=== PATIENT | male | born 1940 | race Caucasian/White ===

== ENCOUNTER 2018-05-30 15:03 | Inpatient (IN) | payer MEDICARE, OTHER ==
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
--- NOTE | ~2018-05-30 | PR ---
[place], [place] PROGRESS NOTE NAME: COREY MEZA UNIT #: [id number] ROOM: 309 DOCTOR: MOHINI SCHMIDT MD BIRTHDATE: [birth year] DOS: 06/07/2018 CHIEF COMPLAINT: "Good morning." SUMMARY OF THE VISIT: The patient was interviewed as he was sitting, eating his breakfast. He was somewhat somnolent. Nurses report, he had just been given a shower and this seems to have worn him out. Overall, the nurses report that there is a steady trend in improvement and that his periods of aggression have decreased in both frequency and intensity. He does seem to be tolerating the current medication regimen well without any apparent tardive dyskinesia, extrapyramidal symptoms, or persistent daytime somnolence. MENTAL STATUS: It was somewhat limited due to his level of somnolence this morning, but he was bright and did engage in brief superficial conversation. PLAN: The patient did seem to improve the most when the Valium was added. I am going to attempt to simplify then his regimen and lessen the amount of antipsychotic he is receiving, bringing the dose from 3 mg daily down to 2 mg daily given in a 1 mg b.i.d. dosing schedule. I will simultaneously increase the Valium from 5 mg t.i.d. to 5 mg 4 times a day to see if this will impact positively on his behavior without the risk of side effects that the antipsychotics bring. We will engage in individual and feldman milieu activities, returning then to the least restrictive environment when psychiatrically stable. MOHINI SCHMIDT MD CM:PNTRANS [id number] MOHINI SCHMIDT MD 06/07/18 0808 interface
--- NOTE | ~2018-05-30 | PR ---
[place], [place] PROGRESS NOTE NAME: COREY MEZA UNIT #: [id number] ROOM: 309 DOCTOR: MOHINI SCHMIDT MD BIRTHDATE: [birth year] DOS: 06/04/2018 CHIEF COMPLAINT: "Good morning." SUMMARY OF THE VISIT: The patient was interviewed as he sat in a Julisa chair. He was resting, but awoke easily and engaged readily in conversation with me. His conversation was brief and at times nonsensical. He did not always respond appropriately to the question being asked. Nurses report he received frequent PRNs during the weekend mostly Geodon because of extreme mood volatility and agitation and physical aggression. He continues to strike out without provocation. He is very hard to redirect. MENTAL STATUS: He is alert and oriented to self. It is unclear place, certainly not time. Mood does seem to be wildly labile. Affect is inappropriate. There is no hypomania, bethanie or psychosis. Memory is very suspect. PLAN: Over the weekend, Yari Brantley, nurse practitioner, restarted Depakote Sprinkles; however, the patient had been on Depakote previously and was therapeutic with a blood level of 93 while at ____ [facility] and this did not seem to impact positively on his behavior. I will discontinue the Depakote due to previous ineffectiveness and start him on Valium oral solution 5 mg 3 times daily to see if this can impact positively on his behavior. We will attempt to engage him as best we can into individual and feldman milieu activity, returning then to the least restrictive environment when psychiatrically stable. MOHINI SCHMIDT MD CM:PNTRANS [id number] MOHINI SCHMIDT MD 06/04/18 1010 interface
--- NOTE | ~2018-05-30 | PR ---
[place], [place] PROGRESS NOTE NAME: COREY MEZA UNIT #: [id number] ROOM: 309 DOCTOR: MOHINI SCHMIDT MD BIRTHDATE: [birth year] DOS: 06/05/2018 CHIEF COMPLAINT: "Morning." SUMMARY OF THE VISIT: The patient was interviewed as he rested in a Julisa chair. He engaged in brief superficial conversation, most of it nonsensical and not necessarily to the point. Nurses reported a dramatic change in him since the medication changes and he did not require a single p.r.n. in the last 24 hours. He allowed them to straight cath him without becoming combative and has been much more pleasant and cooperative. MENTAL STATUS: He remains alert and oriented to self only. Mood does seem to be more euthymic. Affect more appropriate. There is no bethanie, hypomania or gross psychotic symptoms. Short term memory continues to be problematic. PLAN: I will maintain his current psychotropic regimen. It seems like the Valium along with the Risperdal has taken effect and he is much more pleasant. We will monitor over the next 48-72 hours and then determine the least restrictive environment to which he could be discharged. MOHINI SCHMIDT MD CM:PNTRANS [id number] MOHINI SCHMIDT MD 06/05/18 1114 interface
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
[2018-05-30] MEDS ORDERED: BIOFREEZE118 ML T (17:53)
[2018-05-30] MEDS ORDERED: ARICEPT5 M1 PO (18:34)
[2018-05-30] MEDS ORDERED: ASPIRIN81 M1 PO (18:34)
[2018-05-30] MEDS ORDERED: ATORVASTATIN CA10 M1 PO (18:35)
[2018-05-30] MEDS ORDERED: DEPAKOTE500 MG PO (18:36)
[2018-05-30] MEDS ORDERED: DEPAKOTE250 MG PO (18:36)
[2018-05-30] MEDS ORDERED: LEVOTHYROXINE50 MCG PO (18:36)
[2018-05-30] MEDS ORDERED: MULTIVITAMINS1 EAC1 PO (18:37)
[2018-05-30] MEDS ORDERED: MOBIC7.5 MG PO (18:37)
[2018-05-30] MEDS ORDERED: TRAZODONE50 MG PO (18:37)
[2018-05-30] MEDS ORDERED: ZANTAC 150150 MG PO (18:38)
[2018-05-30] MEDS ORDERED: VALSARTAN160 MG PO (18:38)
[2018-05-30] MEDS ORDERED: RISPERDAL0.5 MG PO (18:38)
[2018-05-30] MEDS ORDERED: NAMENDA10 MG PO (18:38)
[2018-05-30] MEDS ORDERED: HALDOL5 MG/1 ML IM (18:39)
[2018-05-30 19:51] VITALS: BP 141/86
[2018-05-30 19:52] VITALS: BP 141/86
[2018-05-31 08:08] VITALS: BP 138/75
[2018-05-31 13:15] LABS: BASO % 0.6 % (0.0-1.0); EOS # 0.1 10*3/uL (0.0-0.4); EOS % 2.4 % (1.0-4.0); HEMATOCRIT 44.3 % (42.0-52.0); HEMOGLOBIN 15.1 g/dl (14.0-18.0); LYMPH # 1.2 10*3/uL (1.3-4.4); LYMPH % 23.7 % (27.0-41.0); MEAN CELL VOLUME 100.7 fl (80.0-94.0); MEAN CORPUSCULAR HGB 34.3 pg (27.0-31.0); MEAN CORPUSCULAR HGB CONC 34.1 g/dl (33.0-37.0); MEAN PLATELET VOLUME 11.3 fl (9.6-12.3); MONO # 0.3 10*3/uL (0.1-1.0); MONO % 6.9 % (3.0-9.0); NEUT # 3.3 10*3/uL (2.3-7.9); PLATELET COUNT AUTOMATED 158 10*3/uL (130-400); WHITE BLOOD COUNT 4.9 10*3/uL (4.8-10.8)
[2018-05-31 13:35] LABS: ALKALINE PHOSPHATASE 81 U/L (45-117); BUN 19 mg/dl (7-24); CHLORIDE 105 mmol/L (98-107); CHOLESTEROL 85 mg/dL (<200); CREATININE 0.96 mg/dL (0.70-1.30); HDL CHOLESTEROL 30 mg/dl (40-60); LDL CHOLESTEROL 30 mg/dL (9-159); SGOT/AST 32 IU/L (3-35); SGPT/ALT 41 U/L (12-78); SODIUM 140 mmol/L (136-145); TOTAL PROTEIN 7.2 gm/dL (6.4-8.2); TRIGLYCERIDES 124 mg/dl (<150); VLDL CHOLESTEROL 25 mg/dL (6-40)
[2018-05-31 14:55] LABS: VITAMIN D, 25-HYDROXY 22.7 ng/mL (30-100)
[2018-05-31 20:00] VITALS: BP 146/92
[2018-06-01 08:04] VITALS: BP 118/70
[2018-06-01 20:19] VITALS: BP 126/72
[2018-06-02 07:33] VITALS: BP 122/71
[2018-06-02 19:05] VITALS: BP 126/70
[2018-06-03 07:30] VITALS: BP 122/69
[2018-06-03 19:10] VITALS: BP 118/66
[2018-06-04 07:57] VITALS: BP 121/84
[2018-06-04 18:30] LABS: BILIRUBIN NEGATIVE (NEGATIVE); BLOOD NEGATIVE (NEGATIVE); CLARITY CLEAR (CLEAR); COLOR YELLOW (YELLOW); GLUCOSE NEGATIVE (NEGATIVE); KETONE NEGATIVE (NEGATIVE); LEUKO ESTERASE NEGATIVE (NEGATIVE); NITRITE NEGATIVE (NEGATIVE)
[2018-06-04 19:56] VITALS: BP 124/78
[2018-06-05 07:37] VITALS: BP 124/78
[2018-06-05 20:14] VITALS: BP 124/78
[2018-06-06 07:29] VITALS: BP 122/75
[2018-06-06 19:15] VITALS: BP 128/70
[2018-06-07 07:12] VITALS: BP 128/68
[2018-06-07 19:10] VITALS: BP 132/70
[2018-06-08 07:18] VITALS: BP 130/72
[2018-06-08] MEDS ORDERED: EXELON13.3 MG/21 T (08:00)
[2018-06-08] MEDS ORDERED: RISPERIDONE M-TA1 MG BC (08:00)
[2018-06-08] MEDS ORDERED: Diazepam PO (08:00)
[2018-06-08] MEDS ORDERED: MEMANTINE HCL10 MG PO (08:00)
[2018-06-08] MEDS ORDERED: VITAMIN D5000 UNIT PO (11:31)
[2018-06-08 19:09] VITALS: BP 122/59
== END 2018-06-08 19:48 | disposition other institution (70) | DRG 883 ==
LOC: 3N 15:03
PROVIDERS: Psychiatry & Neurology Psychiatry
DX: F63.81 Intermittent explosive disorder (principal); L03.115 Cellulitis of right lower limb; L03.116 Cellulitis of left lower limb; F02.81 Dementia in other diseases classified elsewhere, unspecified severity, with behavioral disturbance; E78.5 Hyperlipidemia, unspecified; K21.9 Gastro-esophageal reflux disease without esophagitis; G30.9 Alzheimer's disease, unspecified; I10 Essential (primary) hypertension; E03.9 Hypothyroidism, unspecified; I87.2 Venous insufficiency (chronic) (peripheral); Z88.8 Allergy status to other drugs, medicaments and biological substances; Z91.013 Allergy to seafood; Z79.82 Long term (current) use of aspirin; Z79.899 Other long term (current) drug therapy